=== PATIENT | female | born 1970 | race Caucasian/White ===

== ENCOUNTER 2021-04-19 10:02 | Emergency (ER) | payer OTHER ==
[~2021-04-19] VITALS: Ht 167.6 cm; Wt 136.1 kg
--- OUTSIDE RECORDS SUMMARY | 2021-04-19 10:06 | XMS ---
PreManage Notification: NAE OLIVIER Security Pocket Marker Events No recent Security Events currently on file CRITERIA MET - [facility] There are no care providers on record at this time. Kiara has no Care Guidelines for this patient. Girma VISIT COUNT (12 MO.) 1 RIGOBERTO Pizarro TOTAL 1 NOTE: Visits indicate total known visits. ED/C VISIT TRACKING (12 MO.) 04/19/2021 10:03 RIGOBERTO [facility] [place] TYPE: Emergency COMPLAINT: - FEET INJURY INPATIENT VISIT TRACKING (12 MO.) No inpatient visits to display in this time frame [id number]
[2021-04-19] MEDS ORDERED: OMEPRAZOLE20 MG PO (10:29)
[2021-04-19] MEDS ORDERED: PROZAC10 MG PO (10:30)
[2021-04-19] MEDS ORDERED: OXAZEPAM10 MG PO (10:31)
== END 2021-04-19 13:04 | disposition home or self-care (01) ==
LOC: ED 10:02
DX: S90.32XA Contusion of left foot, initial encounter (principal); S90.31XA Contusion of right foot, initial encounter; S80.02XA Contusion of left knee, initial encounter; S80.01XA Contusion of right knee, initial encounter; V03.10XA Pedestrian on foot injured in collision with car, pick-up truck or van in traffic accident, initial encounter; Y93.02 Activity, running; E11.9 Type 2 diabetes mellitus without complications; Z88.6 Allergy status to analgesic agent; Z79.899 Other long term (current) drug therapy
CPT/HCPCS: 73560; 73610; 73630; 99283-25